=== PATIENT | female | born 1940 | race Caucasian/White ===

== ENCOUNTER 2020-01-31 09:19 | Outpatient (CLI) | payer MEDICARE, OTHER, SELFPAY ==
--- NOTE | ~2020-01-31 | MM_ITS ---
EXAMINATION: MM scrn kwaku implant BI w luisa HISTORY: Screening TECHNIQUE: Craniocaudal and mediolateral oblique 3-D tomosynthesis images with implant displacement a nd synthetic 2-D images were generated. Craniocaudal and mediolateral oblique views of the breasts wi thout implant displacement were obtained using full field digital mammography. CAD analysis was submi tted and interpreted. COMPARISON: Comparison to multiple prior studies sequentially, with oldest reviewed study dated 09/12. BREAST PARENCHYMAL COMPOSITION: The breasts are heterogeneously dense, which may obscure small masses . FINDINGS: There are bilateral subpectoral silicone implants. There is no evidence of suspicious mass, calcification, or architectural distortion to suggest malignancy in either breast. There has been no suspicious interval change. IMPRESSION: 1. No mammographic evidence of malignancy. 2. Recommend routine screening mammography in one year. BI-RADS Category 1: Negative Reviewed, dictated and finalized at location A. YSIS RN
== END 2020-01-31 09:20 | disposition home or self-care (01) ==
LOC: ANHIMG 09:27
PROVIDERS: PCP Internal Medicine; Visit Provider Internal Medicine
DX: Z12.31 Encounter for screening mammogram for malignant neoplasm of breast (principal)
CPT/HCPCS: 77063; 77067

== ENCOUNTER 2020-11-15 09:05 | Outpatient (CLI) | payer MEDICARE, OTHER, SELFPAY ==
--- NOTE | 2020-11-15 11:30 | NEURO_ITS ---
Impression: # Complains of numbness in all extremities. # Generalized wasting with decreased motor unit potentials but no fibrillations or myotonia noted. # Left ulnar neuropathy non-localizing. 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 # Abnormal needle/EMG exam. Nerve Conduction Studies Anti Sensory Summary Table Stim Site NR Peak (ms) P-T Amp (?V) Site1 Site2 Delta-P (ms) Dist (cm) Willi (m/s) Left Median Anti Sensory (2-3nd Digit) Wrist 3.8 98.2 Wrist 2-3nd Digit 3.8 14.0 37 Wrist 3.8 80.6 Wrist 2-3nd Digit 3.8 14.0 37 Right Median Anti Sensory (2-3nd Digit) Wrist 3.3 113.1 Wrist 2-3nd Digit 3.3 14.0 42 Wrist 3.4 104.8 Wrist 2-3nd Digit 3.3 14.0 42 Left Radial Anti Sensory (Base 1st Digit) NO RESPONSE Wrist NR Wrist Base 1st Digit 0.0 Right Radial Anti Sensory (Base 1st Digit) Wrist 3.0 33.1 Wrist Base 1st Digit 3.0 0.0 Left Sup Fibular Anti Sensory (Ant Lat Mall) 14 cm 4.5 12.5 14 cm Ant Lat Mall 4.5 16.0 36 Right Sup Fibular Anti Sensory (Ant Lat Mall) NO RESPONSE 14 cm NR 14 cm Ant Lat Mall 16.0 Left Sural Anti Sensory (Lat Mall) NO RESPONSE Calf NR Calf Lat Mall 16.0 Right Sural Anti Sensory (Lat Mall) Calf 3.3 16.4 Calf Lat Mall 3.3 16.0 48 Left Ulnar Anti Sensory (5th Digit) Wrist 3.7 85.7 Wrist 5th Digit 3.7 14.0 38 Right Ulnar Anti Sensory (5th Digit) Wrist 3.1 73.8 Wrist 5th Digit 3.1 14.0 45 Motor Summary Table Stim Site NR Onset (ms) O-P Amp (mV) Site1 Site2 Delta-0 (ms) Dist (cm) Willi (m/s) Left Median Motor (Abd Poll Brev) Wrist 3.4 4.7 Elbow Wrist 5.3 28.0 53 Elbow 8.7 4.4 Right Median Motor (Abd Poll Brev) Wrist 3.7 5.7 Elbow Wrist 4.6 26.0 57 Elbow 8.3 5.4 Left Peroneal Motor (Vastus Med) Ankle 5.1 0.5 Popit Ankle 8.6 36.0 42 Popit 13.7 0.3 Right Peroneal Motor (Vastus Med) Ankle 4.3 1.9 Popit Ankle 8.9 36.0 40 Popit 13.2 0.9 Left Tibial Motor (Abd Tompkins Brev) Ankle 5.2 0.2 Knee Ankle 7.5 39.0 52 Knee 12.7 0.1 Right Tibial Motor (Abd Tompkins Brev) Ankle 4.8 2.1 Knee Ankle 10.3 40.0 39 Knee 15.1 1.1 Left Ulnar Motor (Abd Dig Minimi) Wrist 2.4 5.1 A Elbow Wrist 5.7 28.0 49 A Elbow 8.1 4.6 B Elbow Wrist 4.4 19.0 43 B Elbow 6.8 4.8 Right Ulnar Motor (Abd Dig Minimi) Wrist 3.0 5.9 A Elbow Wrist 4.8 26.0 54 A Elbow 7.8 5.1 F Wave Studies NR F-Lat (ms) L-R F-Lat (ms) Left Median (Mrkrs) (Abd Poll Brev) 27.64 2.19 Right Median (Mrkrs) (Abd Poll Brev) 25.45 2.19 Left Peroneal (Mrkrs) (EDB) 52.97 0.00 Right Peroneal (Mrkrs) (EDB) 52.97 0.00 Left Tibial (Mrkrs) (Abd Hallucis) 53.87 0.70 Right Tibial (Mrkrs) (Abd Hallucis) 54.58 0.70 Left Ulnar (Mrkrs) (Abd Dig Min) 26.88 0.73 Right Ulnar (Mrkrs) (Abd Dig Min) 26.14 0.73 EMG Side Muscle Nerve Root Ins Act Fibs Amp Dur Recrt Comment Right 1stDorInt Ulnar C8-T1 Nml Nml Nml >12ms Reduced Right Ext Indicis Radial (Post Int) C7-8 Nml Nml Nml Nml Nml Right Ext Digitorum Radial (Post Int) C7-8 Nml Nml Nml >12ms Reduced Right BrachioRad Radial C5-6 Nml Nml Nml
== END 2020-11-15 09:06 | disposition home or self-care (01) ==
LOC: ANHNEURO 09:07
PROVIDERS: PCP Internal Medicine; Visit Provider Internal Medicine
DX: G60.9 Hereditary and idiopathic neuropathy, unspecified (principal); G56.22 Lesion of ulnar nerve, left upper limb; G57.83 Other specified mononeuropathies of bilateral lower limbs
CPT/HCPCS: 95886; 95913

== ENCOUNTER → 2021-02-01 10:16 | Outpatient (CLI) | payer MEDICARE, OTHER, SELFPAY ==
--- NOTE | ~2021-02-01 | MM_ITS ---
EXAMINATION: MM scrn kwaku implant BI w luias HISTORY: Screening mammogram TECHNIQUE: Craniocaudal and mediolateral oblique 3-D tomosynthesis images with implant displacement a nd synthetic 2-D images were generated. Craniocaudal and mediolateral oblique views of the breasts wi thout implant displacement were obtained using full field digital mammography. CAD analysis was submi tted and interpreted. COMPARISON: Comparison to multiple prior studies sequentially, with oldest reviewed study dated 10/18. BREAST PARENCHYMAL COMPOSITION: There are scattered areas of fibroglandular density. FINDINGS: There is no evidence of suspicious mass, calcification, or architectural distortion to sugg est malignancy in either breast. There has been no suspicious interval change. IMPRESSION: 1. No mammographic evidence of malignancy. 2. Recommend routine screening mammography in one year. BI-RADS Category 1: Negative Reviewed, dictated and finalized at location A. STMENT ACCOUNTING CLERK
== END ==
PROVIDERS: PCP Internal Medicine; Visit Provider Internal Medicine
DX: Z12.31 Encounter for screening mammogram for malignant neoplasm of breast (principal)
CPT/HCPCS: 77063; 77067

== ENCOUNTER → 2022-02-04 10:31 | Outpatient (CLI) | payer MEDICARE, OTHER, SELFPAY ==
--- NOTE | ~2022-02-04 | MM_ITS ---
EXAMINATION: MM scrn kwaku implant BI w luisa HISTORY: Screening mammogram TECHNIQUE: Craniocaudal and mediolateral oblique 3-D tomosynthesis images with implant displacement a nd synthetic 2-D images were generated. Craniocaudal and mediolateral oblique views of the breasts wi thout implant displacement were obtained using full field digital mammography. CAD analysis was submi tted and interpreted. COMPARISON: Comparison to multiple prior studies sequentially, with oldest reviewed study dated 10/18. BREAST PARENCHYMAL COMPOSITION: There are scattered areas of fibroglandular density. FINDINGS: There are changes of right mastectomy. There is no evidence of suspicious mass, calcificati on, or architectural distortion to suggest malignancy in either breast. There has been no suspicious interval change. IMPRESSION: 1. No mammographic evidence of malignancy. 2. Recommend routine screening mammography in one year. BI-RADS Category 2: Benign finding(s). Reviewed, dictated and finalized at location B. AGE ENGINEER
== END ==
PROVIDERS: PCP Internal Medicine; Visit Provider Internal Medicine
DX: Z12.31 Encounter for screening mammogram for malignant neoplasm of breast (principal); Z98.82 Breast implant status
CPT/HCPCS: 77063; 77067

== ENCOUNTER 2023-07-31 13:19 | Outpatient (CLI) | payer MEDICARE, OTHER, SELFPAY ==
--- NOTE | ~2023-07-31 | MM_ITS ---
EXAMINATION: MM scrn kwaku implant BI w luisa HISTORY: Screening mammogram TECHNIQUE: Craniocaudal and mediolateral oblique 3-D tomosynthesis images with implant displacement a nd synthetic 2-D images were generated. Craniocaudal and mediolateral oblique views of the breasts wi thout implant displacement were obtained using full field digital mammography. CAD analysis was submi tted and interpreted. COMPARISON: Comparison to multiple prior studies sequentially, with oldest reviewed study dated 11/06. BREAST PARENCHYMAL COMPOSITION: Dense: The breasts are extremely dense, which lowers the sensitivity of mammography. FINDINGS: There is no evidence of suspicious mass, calcification, or architectural distortion to sugg est malignancy in either breast. There has been no suspicious interval change. IMPRESSION: 1. No mammographic evidence of malignancy. 2. Recommend routine screening mammography in one year. BI-RADS Category 1: Negative Reviewed, dictated and finalized at location B.
== END 2023-07-31 13:20 ==
LOC: MICIMG 13:21
PROVIDERS: PCP Internal Medicine; Visit Provider Internal Medicine
DX: Z12.31 Encounter for screening mammogram for malignant neoplasm of breast (principal)
CPT/HCPCS: 77063; 77067

== ENCOUNTER 2023-08-04 10:45 | Outpatient (CLI) | payer MEDICARE, OTHER, SELFPAY ==
--- NOTE | 2023-08-04 10:55 | ECG_ITS ---
Test Date: 2023-08-04 11:13:22 Measurements Intervals [place] Rate: 69 P: 44 RI: 152 QRS: 35 QRSD: 83 T: 67 QT: 400 QTc: 430 Interpretive Statements SINUS RHYTHM NONSPECIFIC T-WAVE ABNORMALITY No previous ECG available for comparison Electronically Signed On 08-04-2023 12:19:59 CDT by Jose Urban M.D.
== END 2023-08-04 10:46 | disposition home or self-care (01) ==
LOC: ANHCARD 10:47
PROVIDERS: PCP Internal Medicine
DX: Z01.818 Encounter for other preprocedural examination (principal); R94.31 Abnormal electrocardiogram [ECG] [EKG]
CPT/HCPCS: 93005

== ENCOUNTER 2023-09-22 08:12 | Emergency (ER) | payer MEDICARE, OTHER, SELFPAY ==
--- NOTE | ~2023-09-22 | XR_ITS ---
XR hand RT min 3V Ordering provider: Clarises Fontenot APRN History: . fall last night pain across top of hand, hx of wrist . Comparison: None. FINDINGS: BONES: Fracture is seen in the distal metaphysis of the right radius no other fractures seen. Fractur e in the proximal metaphysis of the fourth and fifth metacarpal bone. JOINT SPACES: Narrowing of the proximal and distal interphalangeal joints with narrowing of the first and second metacarpophalangeal joints. Osteoarthritic changes of the first carpometacarpal joint. SOFT TISSUES: Normal. IMPRESSION: Fracture in the distal metaphysis of the radius with slight angulation. Fracture of the proximal metaphysis of the fourth and fifth metacarpal bones. Osteoarthritic changes at multiple joints. Reviewed, dictated and finalized at location A.
[2023-09-22 08:22] VITALS: BP 90/61; PULSE 75; RESP 16; TEMP 36.6; O2SAT 97
[2023-09-22 08:26] VITALS: BP 90/61; PULSE 75; RESP 16; TEMP 36.6; O2SAT 97
--- NOTE | 2023-09-22 08:33 | ED.GENADULT ---
HPI - General Adult General Chief complaint: Extremity Injury, Upper Stated complaint: Injured Right Hand Time Seen by Provider: 09/22/23 08:30 Source: patient, RN notes reviewed and old records reviewed Mode of arrival: ambulatory Limitations: no limitations History of Present Illness HPI narrative: 83-year-old [facility] to [facility] complaint right wrist and right hand pain status post fall last night. Patient states that she was walking through her bedroom in the dark with crocs shoes on around 10:00 p.m. last night when she tripped and fell backwards. Patient states that when she fell she struck her right wrist and hand on a piece of wooden furniture. Patient states that she and her noticed a large skin tear to right dorsal hand and utilized wound care items they had at home to clean and cover the wound. Patient states that she went in for bunionectomy this morning and during preop assessment was advised that she needed to come here to be seen. Patient states that she takes tramadol for chronic pain and that she has not had to supplement with [id number] medications. Patient denies any numbness, tingling, weakness in hand or wrist. Respirations even and nonlabored. Patient alert and oriented x3. Patient in no acute distress. Related Data Home Medications Medication Instructions Recorded Confirmed alprazolam 0.25 mg tablet 0.25 mg PO DAILY 08/28/20 09/22/23 amlodipine 10 mg tablet 10 mg PO DAILY 09/12/20 09/22/23 atorvastatin 10 mg tablet 10 mg PO DAILY 09/12/20 09/22/23 cetirizine 10 mg tablet 10 mg PO DAILY 09/12/20 09/22/23 glucosamine HCl 500 mg tablet 500 mg PO DAILY 09/12/20 09/22/23 hydrochlorothiazide 12.5 mg tablet 12.5 mg PO WEEKLY 09/12/20 09/22/23 lactobacillus combination no.4 3 3,000 mmu cells PO DAILY 09/12/20 09/22/23 billion cell capsule (Probiotic) metoprolol succinate 50 mg 50 mg PO DAILY 09/12/20 09/22/23 tablet,extended release 24 hr metoprolol tartrate 100 mg tablet 100 mg PO DAILY 09/12/20 09/22/23 multivitamin 1 tablet PO DAILY 09/12/20 09/22/23 omega-3 fatty acids 1,000 mg 1,000 mg PO DAILY 09/12/20 09/22/23 capsule (Fish Oil Concentrate) ramipril 10 mg capsule 10 mg PO DAILY 09/12/20 09/22/23 sulfamethoxazole 800 1 tablet PO DIRECTED 09/22/23 09/22/23 mg-trimethoprim 160 mg tablet Allergies Allergy/AdvReac Type Severity Reaction Status Date / Time No Known Allergies Allergy Verified 09/22/23 08:23 Review of Systems Review of Systems: All systems reviewed & are unremarkable except as noted in HPI and below Constitutional: Constitutional: Reports no additional constitutional complaints Eyes: Eyes: Reports no additional eye complaints ENT: Reports system reviewed and no additional complaints, except as documented Cardiovascular: Cardiovascular: Reports no additional cardiovascular complaints, Denies chest pain and Denies dyspnea Respiratory: Respiratory: Reports no additional respiratory complaints, Denies cough and Denies dyspnea Musculoskeletal: Musculoskeletal: Reports as per HPI, Reports arthralgias ( right wrist and right hand), Denies joint swelling, Denies numbness and Denies tingling Integumentary/Breasts: Skin/Breast: Reports as per HPI and Reports wounds (3cm x4cm skin tear right dorsal hand) Neurologic: Reports system reviewed and no additional complaints, except as documented Psychiatric: Psychiatric: Reports no additional psychiatric complaints PMF Past Medical History Medical History Kidney disease Surgical History Surgical History History of renal stent Social History Social History Smoking status: Former smoker Alcohol intake: current Alcohol use details: socially Comments At the time of my signature, I reviewed and agree with the nursing
== END 2023-09-22 09:55 | disposition home or self-care (01) ==
PROVIDERS: Emergency Provider Nurse Practitioner Family; PCP Internal Medicine
DX: M19.041 Primary osteoarthritis, right hand (principal); S52.501A Unspecified fracture of the lower end of right radius, initial encounter for closed fracture; S62.304A Unspecified fracture of fourth metacarpal bone, right hand, initial encounter for closed fracture; S62.306A Unspecified fracture of fifth metacarpal bone, right hand, initial encounter for closed fracture; S61.411A Laceration without foreign body of right hand, initial encounter; W01.0XXA Fall on same level from slipping, tripping and stumbling without subsequent striking against object, initial encounter; Z87.891 Personal history of nicotine dependence; N28.9 Disorder of kidney and ureter, unspecified
CPT/HCPCS: 29105; 73130; 73502; 99214; A4565; G0463

== ENCOUNTER 2023-09-22 14:15 | Emergency (ER) | payer MEDICARE, OTHER, SELFPAY ==
--- NOTE | ~2023-09-22 | XR_ITS ---
EXAMINATION: XR hip RT min 3V w AP pelvis DATE: 09/22/2023 14:33 INDICATION: Right hip pain. Fall. TECHNIQUE: An anteroposterior view of the pelvis and 2 views of right hip were obtained. COMPARISON: None. FINDINGS: There is a subcapital fracture deformity of right femoral neck. Internal fixation is seen w ith 3 lag screws. There is a fracture of right inferior pubic ramus. There is mild osteoarthritis of the hips. 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 IMPRESSION: 1. Fracture of right inferior pubic ramus. 2. Mild osteoarthritis of the hips. 3. Infrarenal aortic aneurysm measuring approximately 5 cm. Abdomen CTA is recommended. Reviewed, dictated and finalized at location A. IMPRESSION: 1. Fracture of right inferior pubic ramus. 2. Mild osteoarthritis of the hips. 3. Infrarenal aortic aneurysm measuring approximately 5 cm. Abdomen CTA is papito mmended.
[2023-09-22 14:23] VITALS: BP 100/68; PULSE 76; RESP 16; TEMP 36.8; O2SAT 95
--- NOTE | 2023-09-22 14:44 | ED.LOWEXIN ---
HPI - Extremity Injury (Lower) General Chief Complaint: Extremity Injury, Lower Stated Complaint: Injured Hip Time Seen by Provider: 09/22/23 14:42 Source: patient, RN notes reviewed and old records reviewed Mode of arrival: ambulatory Limitations: no limitations History of Present Illness HPI Narrative: 83-year-old [facility] to [facility] complaint of right hip pain. Patient states that she was walking through her bedroom in the dark with crocs shoes on around 10:00 p.m. last night when she tripped and fell backwards. Patient states that after leaving here she went home and rested. Patient was seen here earlier today status post fall for right hand and wrist pain and diagnosed with multiple fractures to right hand and wrist. Patient states that just prior to arrival she started experiencing right hip discomfort with weight-bearing. Patient denies numbness, tingling, weakness. Patient alert and oriented x3. Respirations even and nonlabored. Patient in no acute distress. Related Data Home Medications Medication Instructions Recorded Confirmed alprazolam 0.25 mg tablet 0.25 mg PO DAILY 08/28/20 09/22/23 amlodipine 10 mg tablet 10 mg PO DAILY 09/12/20 09/22/23 atorvastatin 10 mg tablet 10 mg PO DAILY 09/12/20 09/22/23 cetirizine 10 mg tablet 10 mg PO DAILY 09/12/20 09/22/23 glucosamine HCl 500 mg tablet 500 mg PO DAILY 09/12/20 09/22/23 hydrochlorothiazide 12.5 mg tablet 12.5 mg PO WEEKLY 09/12/20 09/22/23 lactobacillus combination no.4 3 3,000 mmu cells PO DAILY 09/12/20 09/22/23 billion cell capsule (Probiotic) metoprolol succinate 50 mg 50 mg PO DAILY 09/12/20 09/22/23 tablet,extended release 24 hr metoprolol tartrate 100 mg tablet 100 mg PO DAILY 09/12/20 09/22/23 multivitamin 1 tablet PO DAILY 09/12/20 09/22/23 omega-3 fatty acids 1,000 mg 1,000 mg PO DAILY 09/12/20 09/22/23 capsule (Fish Oil Concentrate) ramipril 10 mg capsule 10 mg PO DAILY 09/12/20 09/22/23 sulfamethoxazole 800 1 tablet PO DIRECTED 07/30/24 07/30/24 mg-trimethoprim 160 mg tablet Allergies Allergy/AdvReac Type Severity Reaction Status Date / Time No Known Allergies Allergy Verified 09/22/23 08:23 Review of Systems Review of Systems: All systems reviewed & are unremarkable except as noted in HPI and below Constitutional: Constitutional: Reports no additional constitutional complaints Eyes: Eyes: Reports no additional eye complaints ENT: Reports system reviewed and no additional complaints, except as documented Cardiovascular: Cardiovascular: Reports no additional cardiovascular complaints, Denies chest pain and Denies dyspnea Respiratory: Respiratory: Reports no additional respiratory complaints, Denies cough and Denies dyspnea Musculoskeletal: Musculoskeletal: Reports as per HPI, Reports abnormal gait and Reports arthralgias ( Right hip, right wrist, right hand) Neurologic: Reports system reviewed and no additional complaints, except as documented Psychiatric: Psychiatric: Reports no additional psychiatric complaints PMFSH Past Medical History Medical History Kidney disease Surgical History Surgical History History of renal stent Social History Social History Smoking status: Former smoker Alcohol intake: current Alcohol use details: socially Comments At the time of my signature, I reviewed and agree with the nursing past medical, surgical, social, and family history. There is no relevant family history pertinent to the patient complaint. Exam Const: General: cooperative, no acute distress, alert, uncomfortable, well nourished and thin Nutritional Appearance: well nourished Orientation/consciousness: patient oriented x3 Limitations: no limitations HENMT: Head: normal to inspection Ears: external ears normal Face/Nose/Sin
== END 2023-09-22 15:08 | disposition home or self-care (01) ==
PROVIDERS: Emergency Provider Nurse Practitioner Family
DX: S32.591A Other specified fracture of right pubis, initial encounter for closed fracture (principal); W01.0XXA Fall on same level from slipping, tripping and stumbling without subsequent striking against object, initial encounter; Z87.891 Personal history of nicotine dependence; N28.9 Disorder of kidney and ureter, unspecified
CPT/HCPCS: 73502; 99213; G0463

== ENCOUNTER 2023-09-24 14:31 | Outpatient (CLI) | payer MEDICARE, OTHER, SELFPAY ==
--- NOTE | ~2023-09-24 | XR_ITS ---
XR hand RT min 3V Ordering provider: Alis Moncada PA-C History: . S62.308A - Unspecified fracture of other metacarpal bone,... . Comparison: September 22 2023 FINDINGS: BONES: Fracture of the distal metaphysis of the radius is noted.. Fracture of the base of the proxima l metaphysis of the fourth and fifth metacarpal bones. Cast is seen around the medial aspect of the h and. JOINT SPACES: Osteoarthritic changes of the first carpometacarpal joint and narrowing of the proximal and distal interphalangeal joints. SOFT TISSUES: Normal. IMPRESSION: Fractures in the proximal metaphysis of the fourth and fifth metacarpal bone and in the distal radius unchanged from previous examination. Reviewed, dictated and finalized at location A. IMPRESSION: Fractures in the proximal metaphysis of the fourth and fifth metacarpal bone an d in the distal radius unchanged from previous examination.
== END 2023-09-24 14:32 | disposition home or self-care (01) ==
PROVIDERS: PCP Internal Medicine; Visit Provider Physician Assistant Surgical
DX: S52.501D Unspecified fracture of the lower end of right radius, subsequent encounter for closed fracture with routine healing (principal); S62.306D Unspecified fracture of fifth metacarpal bone, right hand, subsequent encounter for fracture with routine healing; X58.XXXD Exposure to other specified factors, subsequent encounter
CPT/HCPCS: 73130

== ENCOUNTER 2023-10-12 13:59 | Outpatient (CLI) | payer MEDICARE, OTHER, SELFPAY ==
--- NOTE | ~2023-10-12 | XR_ITS ---
EXAMINATION: XR hand RT min 3V DATE: 10/12/2023 14:24 INDICATION: Unspecified fracture of other metacarpal bone. TECHNIQUE: 4 views of right hand were obtained. COMPARISON: Right hand radiographs 09/24/2023, 09/22/2023 FINDINGS: There is an old healed fracture of distal radius. There is an extra-articular oblique fract ure of base of fifth metacarpal with callus formation. The distal fracture fragment demonstrates near -anatomic alignment. There is an extra-articular oblique fracture of base of fourth metacarpal with c allus formation. The distal fracture fragment demonstrates 2 mm posterior displacement and 18 degrees palmar angulation. There is severe osteoarthritis of first carpometacarpal joint and first metacarpo phalangeal joint. There is mild to moderate osteoarthritis of many of the metacarpophalangeal joints and interphalangeal joints. There is severe osteoarthritis of second and third distal interphalangeal joints. IMPRESSION: 1. Healing extra-articular fractures of the bases of the fourth and fifth metacarpals. Reviewed, dictated and finalized at location A. IMPRESSION: 1. Healing extra-articular fractures of the bases of the fourth and fifth metac arpals.
== END 2023-10-12 14:00 | disposition home or self-care (01) ==
PROVIDERS: PCP Internal Medicine; Visit Provider Physician Assistant Surgical
DX: S62.308D Unspecified fracture of other metacarpal bone, subsequent encounter for fracture with routine healing (principal); S52.501D Unspecified fracture of the lower end of right radius, subsequent encounter for closed fracture with routine healing; S62.306D Unspecified fracture of fifth metacarpal bone, right hand, subsequent encounter for fracture with routine healing; X58.XXXD Exposure to other specified factors, subsequent encounter
CPT/HCPCS: 73130

== ENCOUNTER 2023-11-02 10:50 | Outpatient (CLI) | payer MEDICARE, OTHER, SELFPAY ==
--- NOTE | ~2023-11-02 | XR_ITS ---
EXAMINATION: XR hand RT min 3V DATE: 11/02/2023 11:27 INDICATION: Unspecified fracture of other metacarpal bone TECHNIQUE: Posteroanterior, oblique and lateral views of the right hand were obtained. COMPARISON: Radiographs dated between 09/22/2023 and 10/12/2023 FINDINGS: Again seen is an oblique extra articular fracture at the base of the right fourth metacarpal. There i s 2 mm dorsal displacement and 7 degree palmar angulation. The fracture plane is less distinct than o n the initial imaging consistent with interval healing. There is increasing sclerosis consistent with healing about an additional oblique extra articular fra cture at the base of the fifth metacarpal which is without significant displacement or angulation on the provided views. There is an old healed intra-articular fracture of the distal right radial metaphyseal fracture which has healed with volar angulation. Polyarticular osteoarthritis, severe at the first carpometacarpal joint and the second and third distal interphalangeal joints with moderate severity at the wrist and at the metacarpophalangeal and remaining interphalangeal joints. IMPRESSION: 1. Healing extra articular fractures at the base of the fourth and fifth metacarpals. 2. 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 Reviewed, dictated and finalized at location B. IMPRESSION: 1. Healing extra articular fractures at the base of the fourth and fifth metaca rpals. 2. 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
== END 2023-11-02 10:51 | disposition home or self-care (01) ==
LOC: ANHIMG 11:02
PROVIDERS: PCP Internal Medicine; Visit Provider Physician Assistant Surgical
DX: S62.314D Displaced fracture of base of fourth metacarpal bone, right hand, subsequent encounter for fracture with routine healing (principal); S62.316D Displaced fracture of base of fifth metacarpal bone, right hand, subsequent encounter for fracture with routine healing; M19.041 Primary osteoarthritis, right hand; M19.031 Primary osteoarthritis, right wrist; X58.XXXD Exposure to other specified factors, subsequent encounter
CPT/HCPCS: 73130